=== PATIENT | female | born 1980 | race Caucasian/White ===

== ENCOUNTER 2021-04-28 20:39 | Emergency (ER) | payer OTHER ==
[~2021-04-28] VITALS: Ht 162.6 cm; Wt 60.8 kg
[2021-04-28 23:42] VITALS: BP 118/92
[2021-04-29] MEDS ORDERED: TIZANIDINE HCL2 M1 PO (13:21)
[2021-04-29] MEDS ORDERED: APAP W/CODEINE1 TA2 PO (13:22)
[2021-04-29] MEDS ORDERED: ALPRAZOLAM PO (13:22)
[2021-04-29] MEDS ORDERED: HYDROCODON-ACE1 EAC7 PO (16:16)
== END 2021-04-28 21:55 | disposition left against medical advice (07) ==
LOC: M.ERS 20:39
DX: M25.511 Pain in right shoulder (principal); Z53.21 Procedure and treatment not carried out due to patient leaving prior to being seen by health care provider

== ENCOUNTER 2021-04-29 13:10 | Emergency (ER) | payer OTHER ==
[~2021-04-29] VITALS: Ht 162.6 cm; Wt 59.0 kg
[2021-04-29] MEDS ORDERED: TIZANIDINE HCL2 M1 PO (13:21)
[2021-04-29] MEDS ORDERED: ALPRAZOLAM PO (13:22)
[2021-04-29] MEDS ORDERED: APAP W/CODEINE1 TA2 PO (13:22)
[2021-04-29] MEDS ORDERED: HYDROCODON-ACE1 EAC7 PO (16:16)
[2021-04-29 16:34] VITALS: BP 165/108
== END 2021-04-29 16:35 | disposition home or self-care (01) ==
LOC: M.ERS 13:10
DX: S42.031A Displaced fracture of lateral end of right clavicle, initial encounter for closed fracture (principal); M25.521 Pain in right elbow; I10 Essential (primary) hypertension; W18.30XA Fall on same level, unspecified, initial encounter; Y93.89 Activity, other specified; Y92.89 Other specified places as the place of occurrence of the external cause; Y99.9 Unspecified external cause status